=== PATIENT | male | born 1980 | race American Indian/Alaskan Native ===

== ENCOUNTER 2021-09-25 14:27 | Emergency (ER) | payer OTHER ==
[2021-09-25] MEDS: Acetaminophen/HYDROcodone 325-5 MG Tab PO ONE (14:49)
[2021-09-25] MEDS: Amoxicillin/Clavulanate K 875-125 MG Tab PO ONE (14:49)
[2021-09-25] MEDS: Ketorolac 30 MG/ML SDV IM ONE (14:49)
[2021-09-25] MEDS: Lidocaine 2% Viscous Solution 15 ML UD PO ONE (14:50)
== END 2021-09-25 15:20 | disposition home or self-care (01) ==
LOC: FB.ED 14:27
DX: K04.7 Periapical abscess without sinus (principal); K02.9 Dental caries, unspecified; Z88.2 Allergy status to sulfonamides; Z88.7 Allergy status to serum and vaccine; Z79.899 Other long term (current) drug therapy
CPT/HCPCS: 96372; 99282; A9270; J1885